=== PATIENT | male | born 1950 | race Caucasian/White ===

== ENCOUNTER 2018-10-08 16:08 | Emergency (ER) | payer OTHER ==
[~2018-10-08] VITALS: Ht 180.3 cm; Wt 111.6 kg
[2018-10-08] MEDS ORDERED: LIPITOR40 MG PO (16:17)
[2018-10-08] MEDS ORDERED: DIOVAN320 MG PO (16:17)
[2018-10-08] MEDS ORDERED: ASPIR 8181 MG PO (16:17)
[2018-10-08 17:02] LABS: ABSOLUTE BASOPHILS 0.1 thou/uL (0.0-0.2); ABSOLUTE EOSINOPHILS 0.1 thou/uL (0.0-0.7); ABSOLUTE LYMPHOCYTES 2.5 thou/uL (0.8-5.3); ABSOLUTE MONOCYTES 0.9 thou/uL (0.0-1.2); ABSOLUTE NEUTROPHILS 5.6 thou/uL (1.6-8.1); BASOPHILS 0.9 %; EOSINOPHILS 0.7 %; HEMATOCRIT 44.1 % (42.0-52.0); HEMOGLOBIN 15.3 gm/dL (14.0-18.0); LYMPHOCYTES 27.6 %; MCH 35.8 pg (26.0-34.0); MCHC 34.6 g/dL (28.0-37.0); MCV 103.7 fL (80.0-100.0); MONOCYTES 9.8 %; NUCLEATED RBCS 0 /100WBC; PLATELET COUNT* 194 thou/uL (150-400); RBC 4.26 mil/uL (4.50-6.00); RDW-CV 13.9 % (10.5-14.5); WBC 9.2 thou/uL (4.0-11.0)
[2018-10-08 17:14] LABS: BE 0.7 mmol/L (-2 to +3); PCO2 28.2 mmHg (35.0-45.0); PO2 79.8 mmHg (75.0-100.0); pH 7.517 (7.340-7.450)
[2018-10-08 17:16] LABS: CALCIUM 9.5 mg/dL (8.5-10.1); CREATININE 1.1 mg/dL (0.6-1.3); POTASSIUM 3.6 mmol/L (3.5-5.1)
[2018-10-08 17:20] LABS: MAGNESIUM 1.5 mg/dL (1.8-2.4); TOTAL BILIRUBIN 0.7 mg/dL (<0.1-1.0); TOTAL PROTEIN 7.5 g/dL (6.4-8.2)
[2018-10-08 18:34] VITALS: BP 144/80
== END 2018-10-08 18:42 | disposition home or self-care (01) ==
LOC: M.ERS 16:08
PROVIDERS: Personal Emergency Response Attendant
DX: E86.0 Dehydration (principal); I10 Essential (primary) hypertension; G47.30 Sleep apnea, unspecified